=== PATIENT | male | born 1980 | race Hispanic/Latino ===

== ENCOUNTER 2023-02-08 17:52 | Emergency (ER) | payer OTHER, SELFPAY ==
[2023-02-08 18:18] VITALS: BP 138/85; PULSE 73; RESP 16; TEMP 36.4; O2SAT 100
--- NOTE | 2023-02-08 18:20 | ECG_ITS ---
Measurements Intervals [place] Rate: 66 P: 10 MO: 138 QRS: 37 QRSD: 92 T: 29 QT: 370 QTc: 388 Interpretive Statements SINUS RHYTHM BASELINE ARTIFACT- I, II, III, AVR, AVL NORMAL ECG NO PREVIOUS ECG AVAILABLE FOR COMPARISON Electronically Signed On 02-08-2023 19:24:41 LOW VISION THERAPIST by Juan Antonio Pineda D.O.
--- NOTE | 2023-02-08 19:07 | ED.CHESTPAIN ---
HPI - Chest Pain General Chief Complaint: Chest Pain Stated Complaint: Chest Wall Pain Source: patient and RN notes reviewed Mode of arrival: ambulatory Limitations: no limitations History of Present Illness HPI narrative: 42-year-old male presented for complaint of upper abdominal pain and bloating, left upper chest pain intermittently for almost 1 week. currently rates pain 03/22. He states his symptoms are worse after eating and when lying down. Endorses loose stool today.Denies radiating pain to the neck, jaw, back or arm. Denies palpitations, dizzienss, sweating, shortness of breath, wheezing, nausea, vomiting or fever. Quit smoking 3 months ago. Related Data Home Medications Medication Instructions Recorded Confirmed cholecalciferol (vitamin D3) 1,250 02/08/23 mcg (50,000 unit) capsule Allergies Allergy/AdvReac Type Severity Reaction Status Date / Time No Known Allergies Allergy Verified 02/08/23 18:11 Review of Systems Review of Systems: CONSTITUTIONAL: Denies body aches, fever, chills ENT: Denies rhinorrhea, congestion CARDIOVASCULAR: reports chest pain, Denies palpitations, or edema. RESPIRATORY: Denies cough or dyspnea. GASTROINTESTINAL: Endorses upper abdominal pain, denies nausea, vomiting, hematochezia, melena, hematemesis GENITOURINARY: Denies dysuria, hematuria, or CVA tenderness. SKIN: Denies rash, itching, or wounds. MUSCULOSKELETAL: Denies back pain, joint pain, or myalgia. NEUROLOGIC: Denies headache, numbness, tingling, or weakness. All systems reviewed & are unremarkable except as noted in HPI and below PMFSH Past Medical History Medical History (Updated 02/08/23 @ 20:07 by Winter Horne APRN) Family history of thalassemia Non-alcoholic fatty liver disease Family History Family History Father Family history of thalassemia Depression Hypertension Social History Social History Smoking status: Smoker, status unknown Alcohol intake: never Comments At time of signature, I have reviewed and agree with nursing past medical, surgical, social and family history unless otherwise noted. Please see nursing chart for further information. There is no relevant family history pertinent to the presenting complaint Exam Narrative: GENERAL: Well-appearing, and in no acute distress. EYES: EOMI. Conjunctivae normal. ENT: Mucous membranes pink and moist. CHEST: No respiratory distress. Clear to auscultation. Nontender chest wall. HEART: Regular rate and rhythm. No murmur appreciated. Normal peripheral pulses. ABDOMEN: abd soft, nondistended, normal active bowel sounds. Tender abdomen to Bilateral upper quadrants and epigastric area. No guarding, rebound tenderness, asymmetry, or rigidity EXTREMITIES: Normal range of motion. No edema. SKIN: Warm, dry, no rash. Capillary refill normal. Normal skin turgor. NEURO: No focal deficits. Alert and oriented x3. PSYCH: Normal affect. Course Course Emergency Course: Patient is aware of diagnosis, understands and agrees to treatment plan. Anticipatory guidance given. Patient agrees to follow-up as directed and is aware of reasons to seek care at the emergency department. Portions of this record may have been created with voice recognition software Level of Care: Express Care Visit Vital Signs Vital signs: Vital Signs Temperature 97.6 F 02/08/23 18:18 Pulse Rate 73 02/08/23 18:18 Respiratory Rate 16 02/08/23 18:18 Blood Pressure 138/85 02/08/23 18:18 Pulse Oximetry 100 02/08/23 18:18 Oxygen Delivery Room Air 02/08/23 18:18 Temperature 97.6 F 02/08/23 18:18 Pulse Rate 73 02/08/23 18:18 Respiratory Rate 16 02/08/23 18:18 Blood Pressure 138/85 02/08/23 18:18 Pulse Oximetry 100 02/08/23 18:18 Oxygen Delivery Room Air 02/08/23 18:18 MDM - Chest Pain MDM
== END 2023-02-08 19:48 | disposition home or self-care (01) ==
PROVIDERS: Emergency Provider Nurse Practitioner Family; PCP Student in an Organized Health Care Education/Training Program
DX: R10.13 Epigastric pain (principal); R07.9 Chest pain, unspecified; K76.0 Fatty (change of) liver, not elsewhere classified
CPT/HCPCS: 93005; 99213; G0463